=== PATIENT | female | born 1980 | race Caucasian/White ===

== ENCOUNTER 2023-03-24 02:00 | Day surgery (SDC) | payer OTHER, SELFPAY ==
[2023-03-23 21:47] VITALS: BP 206/139
[2023-03-23 22:09] LABS: % Basophils 0.7 % (0-2); % Eosinophils 1.4 % (0-6); % Immature Granulocytes 0.5 % (0-0.5); % Lymphocytes 24.1 % (20.5-51.1); % Monocytes 6.2 % (1.7-9.3); % Neutrophils 67.1 % (42.2-75.2); Absolute Basophils 0.1 10^3/uL (0-0.2); Absolute Eosinophils 0.2 10^3/uL (0-0.7); Absolute Immature Granulocytes 0.1 10^3/uL (0-0.05); Absolute Lymphocytes 3.1 10^3/uL (1.2-3.4); Absolute Monocytes 0.8 10^3/uL (0.1-0.6); Absolute Neutrophils 8.5 10^3/uL (1.4-6.5); Hematocrit 40.3 % (37.0-47.0); Hemoglobin 13.9 g/dL (12.0-16.0); Mean Corp Hgb Conc. 34.5 g/dL (33.0-37.0); Mean Corpuscular Hgb 27.1 pg (27.0-31.0); Mean Corpuscular Volume 78.7 fL (81.0-99.0); Mean Platelet Volume 8.5 fL (7.4-10.4); Nucleated Red Blood Cells % 0 %; Platelet Count 291 10^3/uL (130-400); Red Blood Cell Count 5.12 10^6/uL (4.20-5.40); Red Cell Dist. Width 13.6 % (11.5-14.5); White Blood Cell Count 12.7 10^3/uL (4.8-10.8)
[2023-03-23 22:22] LABS: Lactic Acid 2.1 mmol/L (0.7-2.0)
[2023-03-23 22:29] LABS: ALT (SGPT) 21 U/L (0-35); AST (SGOT) 26 U/L (14-36); Albumin 4.4 g/dl (3.5-5.0); Alkaline Phosphatase 123 U/L (38-126); Blood Urea Nitrogen 16 mg/dl (7-17); Calcium 9.8 mg/dl (8.4-10.2); Carbon Dioxide 28 mmol/L (22-30); Chloride 96 mmol/L (98-107); Glucose 104 mg/dl (70-99); Potassium 3.7 mmol/L (3.5-5.1); Sodium 136 mmol/L (135-145); Total Bilirubin 0.5 mg/dl (0.2-1.3); Total Protein 7.6 g/dl (6.3-8.2); eGFR > 60.00
[2023-03-23 22:30] LABS: Lipase 128 U/L (23-300)
[2023-03-23 22:40] VITALS: BP 120/72
[2023-03-23 22:44] VITALS: BMI 40.7
[2023-03-23 23:00] VITALS: BP 132/94
--- NOTE | 2023-03-23 23:04 | ED.GENMED ---
History of Present Illness
<Jennifer aKuffman, MEDICAL AIDE - Last Filed: 03/23/23 23:38>
General
Chief Complaint: Abdominal Pain
Source: patient
Exam Limitations: none
Time Seen by Provider: 03/23/23 22:50
Nursing documentation reviewed up to this point in time: agreed with
Travel History
Have you had any contact with someone who has COVID-19?: No
Do you have any symptoms of coronavirus? Fever > 100 degrees, chills, cough, shortness of breath, sore throat, loss of taste or smell, muscle aches, or headache?: No
History of Present Illness
History of Present Illness:
42-year-old female with history of C-sections states at 2 PM today she developed right lower quadrant pain that has become worse it is now 8/10. She is nauseous but has not vomited. She had 2 loose stools this morning. She denies chest pain or
trouble breathing.
Past History
<Jennifer Kauffman, MEDICAL AIDE - Last Filed: 03/23/23 23:38>
Past History
ED Past Medical History: None
ED Past Surgical History:
Social History
Tobacco: Non-smoker
Alcohol: None
Personal:
Living: with family
Employment: Employed ([employer])
Review of Systems
<Jennifer Kauffman, MEDICAL AIDE - Last Filed: 03/23/23 23:38>
Review of Systems
Allergies reviewed?: Yes
All Other Systems: ROS reviewed and negative except as documented in HPI and ROS
Respiratory: Denies trouble breathing
Cardiac: Denies chest pain
ABD/GI: Reports abdominal pain and nausea; Denies vomiting, diarrhea (loose stools this a.m.), bloody stools or black stools
: Denies dysuria, difficulty voiding or urgency
Musculoskeletal: Reports no symptoms
Skin: Reports no symptoms
Neurological: Reports no symptoms
Phy Exam
<Jennifer Kauffman, MEDICAL AIDE - Last Filed: 03/23/23 23:38>
Physical Exam
Physical Exam:
GENERAL: Mild distress with RLQ pain. A&Ox3.
CONSTITUTIONAL: Afebrile.
EYES: clear, conjunctivae normal
ENMT: moist mucus membranes, Pharynx nl
RESPIRATORY: Regular respirations, nonlabored, lungs clear.
CARDIOVASCULAR: Regular rate and rhythm, no murmurs, no rubs.
GI: Morbidly obese, Soft, tender RLQ, normal BS
MUSCULOSKELETAL: Moves with ease. Well perfused.
SKIN: Warm, dry, pink
PSYCH: Normal mood and affect. Well kept, interactive and appropriate
NEUROLOGIC: Awake, alert and oriented. No focal neurological deficits
Course
<Jennifer Kauffman, MEDICAL AIDE - Last Filed: 03/23/23 23:38>
Orders/Labs/Results
Orders:
Orders
03/23/23 22:01
Beta HCG Quantitative Urgent
Comment: ADD ON
Complete Blood Count/With Diff Urgent
Comprehensive Metabolic Panel Urgent
Lactic Acid Urgent
Lipase Urgent
Blood Culture Urgent
ROXANA Source: Blood/Venous
Specimen Description:
03/23/23 23:07
0.9% Sodium Chloride 1000 ml [Nss] 1,000 ml IV BOLUS
HYDROmorphone [Dilaudid] 1 mg IV NOW STA
03/23/23 23:08
Ondansetron Injectable [Zofran] 4 mg IV NOW STA
03/23/23 23:18
Add On- LAB Urgent
Tests Added?: serum beta HCG
03/24/23 00:30
CT Abd/Pel (IV only)-DH only Urgent
Reason For Exam: RLQ pain
03/24/23 01:21
HYDROmorphone [Dilaudid] 1 mg IV NOW STA
Piperacillin/Tazo 3.375 Gram [Zosyn] 3.375 gram in 50 ml IV NOW
Abnormal Lab Results
03/23/23
22:01
WBC 12.7 H 10^3/uL
(4.8-10.8)
MCV 78.7 L fL
(81.0-99.0)
Abs Immat Gran (auto) 0.1 H 10^3/uL
(0-0.05)
Absolute Neuts (auto) 8.5 H 10^3/uL
(1.4-6.5)
Absolute Monos (auto) 0.8 H 10^3/uL
(0.1-0.6)
Chloride 96 L mmol/L
(98-107)
Glucose 104 H mg/dl
(70-99)
Lactic Acid 2.1 H mmol/L
(0.7-2.0)
03/23/23 22:01
03/23/23 22:01
Vital Signs
Initial and Last Documented VS:
Initial Vital Signs
Temp Pulse Resp BP Pulse Ox
36.9 C 98 20 206/139 98
03/23/23 21:47 03/23/23 21:47 03/23/23 21:47 03/23/23 21:47 03/23/23 21:47
Last Documented Vital Signs
Temp Pulse Resp BP Pulse Ox
36.9 C 83 14 142/86 96
03/23/23 21:47 03/24/23 01:15 03/23/23 22:45 03/24/23 00:00 03/24/23 01:15
<Dash Hanson MD - Last Filed: 03/24/23 01:32>
Orders/Labs/Results
Orders:
Orders
03/23/23 22:01
Beta HCG Quantitative Urgent
Comment: ADD ON
Complete Blood Count/With Diff Urgent
Comprehensive Metabolic Panel Urgent
Lactic Acid Urgent
Lipase Urgent
Blood Culture Urgent
ROXANA Source: Blood/Venous
Specimen Description:
03/23/23 23:07
0.9% Sodium Chloride 1000 ml [Nss] 1,000 ml IV BOLUS
HYDROmorphone [Dilaudid] 1 mg IV NOW STA
03/23/23 23:08
Ondansetron Injectable [Zofran] 4 mg IV NOW STA
03/23/23 23:18
Add On- LAB Urgent
Tests Added?: serum beta HCG
03/24/23 00:30
CT Abd/Pel (IV only)-DH only Urgent
Reason For Exam: RLQ pain
03/24/23 01:21
HYDROmorphone [Dilaudid] 1 mg IV NOW STA
Piperacillin/Tazo 3.375 Gram [Zosyn] 3.375 gram in 50 ml IV NOW
Abnormal Lab Results
03/23/23
22:01
WBC 12.7 H 10^3/uL
(4.8-10.8)
MCV 78.7 L fL
(81.0-99.0)
Abs Immat Gran (auto) 0.1 H 10^3/uL
(0-0.05)
Absolute Neuts (auto) 8.5 H 10^3/uL
(1.4-6.5)
Absolute Monos (auto) 0.8 H 10^3/uL
(0.1-0.6)
Chloride 96 L mmol/L
(98-107)
Glucose 104 H mg/dl
(70-99)
Lactic Acid 2.1 H mmol/L
(0.7-2.0)
03/23/23 22:01
03/23/23 22:01
Vital Signs
Initial and Last Documented VS:
Initial Vital Signs
Temp Pulse Resp BP Pulse Ox
36.9 C 98 20 206/139 98
03/23/23 21:47 03/23/23 21:47 03/23/23 21:47 03/23/23 21:47 03/23/23 21:47
Last Documented Vital Signs
Temp Pulse Resp BP Pulse Ox
36.9 C 83 14 142/86 96
03/23/23 21:47 03/24/23 01:15 03/23/23 22:45 03/24/23 00:00 03/24/23 01:15
<Jennifer Kauffman MEDICAL AIDE - Last Filed: 03/23/23 23:38>
MDM/Problems Addressed
Differential Diagnosis Includes:
Appendicitis, colitis, gastroenteritis
MDM/Problems Addressed:
42-year-old female with history of C-sections states at 2 PM today she developed right lower quadrant pain that has become worse it is now 8/10. She is nauseous but has not vomited. She had 2 loose stools this morning. She denies chest pain or
trouble breathing.
Afebrile
Appears moderately uncomfortable
03/23/2023 2307 PM
BP rechecked 132/94
CBC: WBC 12.7
CMP: Normal
Lactic: 2.1
Lipase normal
HCG:
ED Attending Note
<Jennifer Kauffman MEDICAL AIDE - Last Filed: 03/23/23 23:38>
-
Portions of this chart may have been created with voice recognition software.� Occasional wrong word or��sound alike� substitutions may have occurred due to the inherent limitations of voice recognition software.
<Dash Hanson MD - Last Filed: 03/24/23 01:32>
ED Attending Note
Patient seen and examined by attending physician: Yes
ED Attending Note:
I have seen and evaluated the patient with a [id number] encounter. I have spoken to the advance practicer provider and involved in the medical history, the physical exam, medical decision making.
Evaluation and management service: agree unless noted differently below.
Results interpretation: agree unless noted differently below.
Focused HPI: 42-year-old female with no chronic medical issues presents for evaluation of abdominal pain. Located right lower quadrant. She reports onset this afternoon and has been constant and worsening since that time. Associated with some
loose stools and nausea. No vomiting. No fevers. No urinary symptoms. No vaginal bleeding. No similar symptoms in the past.
Physical exam: Awake alert oriented x 3. Hypertensive in triage normalized by my assessment. Afebrile. Abdomen soft, nondistended, markedly tender right lower quadrant.
Medical Decision Making: Patient presents with worsening right lower quadrant abdominal pain. Labs sent off which shows WBC 12.7, CMP unremarkable, lactate slightly elevated 2.1. CT of the abdomen pelvis called back by [facility] positive
for acute uncomplicated appendicitis. Treated patient's pain, provided some fluids. Discussed with general surgery will admit to their service.
Discharge Plan
Departure
Patient Disposition: Admit
Date of Disposition: 03/24/23
Time of Disposition: :
Admit to doctor: Charlette
Presentation/result/management discussed w/ accepting MD/DO: General Surgery
Discharge Problem:
Acute appendicitis
Referrals:
Warren Dodd DO [Family Provider] -
Interventions
Interventions:
*Risk Screen - Suicide Last Done: 03/23/23 21:47
*General Assessment Last Done: 03/23/23 21:47
*Neglect/Abuse Screening Last Done: 03/23/23 21:47
ED- Fall Risk Assessment Last Done: 03/23/23 22:45
NB-Nmznzo-Pgqqibaghp Assessment Last Done: 03/23/23 22:45
[2023-03-23] MEDS: ZOFRAN 4 MG IV (23:13)
[2023-03-23] MEDS: NSS 1000 IV (23:13)
[2023-03-23] MEDS: DILAUDID 1 MG IV (23:13)
[2023-03-24] VITALS (19 sets, daily range): BP systolic 91–142; BP diastolic 47–86
[2023-03-24 00:16] LABS: Beta HCG Quantitative < 2.39 mIU/ml
[2023-03-24] MEDS: DILAUDID 1 MG IV ×5 (01:49→10:12)
[2023-03-24] MEDS: ZOSYN 50 IV ×4 (01:49→20:23)
--- NOTE | 2023-03-24 02:33 | HPS.HSE ---
Family Physician
-
Family Physician: Warren Dodd
Chief Complaint
-
RLQ abdominal pain and nausea
History of Present Illness
This is a pleasant 42 year old female who came to the ED with her after a rather sudden onset of unprovoked RLQ abdominal pain with nausea earlier in the afternoon. PMH includes C sections. No aggravating or relieving factors. She takes no
medications on a regular basis. No YAN, CP, SOB, AMARO, diarrhea or dysuria.
Medical History
Past Medical History
Past Medical History: Reports Other
Past Surgical History: Reports Gynocological
Additional Past Surgical History:
C section
Social History
Tobacco: Non-smoker
Alcohol: Occasional
Drug: None
Personal:
Living: With Family
Employment: Employed
Family History
Family History: Not pertinent
Allergies / Home Medications
Allergies reflects when Allergies were last updated in [facility].
Home Medications with original date entered in [facility]
Allergy/Medication List:
Allergies
Allergy/AdvReac Type Severity Reaction Status Date / Time
No Known Allergies Allergy Unverified 03/23/23 21:47
If medication reconciliation has not been performed, why?: Medication List N/A
Review of Systems
-
History Source: Patient, Family and Other (previously obtained medical records)
A 12 point ROS was completed and negative except as noted: Yes
Constitutional: Reports Fatigue
EENT: Reports No Symptoms
Respiratory: Reports No Symptoms
Cardiac: Reports No Symptoms
Abdomen/GI: Reports Abdominal Pain (RLQ)
: Reports No Symptoms
Musculoskeletal: Reports No Symptoms
Skin: Reports No Symptoms
Neurological: Reports No Symptoms
Endocrine: Reports No Symptoms
Hematologic/Lymphatic: Reports No Symptoms
Psych: Reports No Symptoms
Physical Exam
Vital Signs
Vital Signs
Temp Pulse Resp BP Pulse Ox
98.4 F 83 14 142/86 96
03/23/23 21:47 03/24/23 01:15 03/23/23 22:45 03/24/23 00:00 03/24/23 01:15
Physical Exam
General: Well Developed, Well Nourished and Pain
HEENT: NormoCephalic, Moist mucous membranes, Atraumatic and PERRLA
Respiratory: Clear and Non Labored Respirations
Cardiac: S1/S2 and Regular Rhythm
Breast: Deferred by me
GI: Soft and Tender (RLQ)
Rectal: Deferred by Provider
Genito-urinary: Clear Urine
Musculoskeletal: No Clubbing, No Cyanosis and No Edema
Skin: Warm and Dry
Neuro: Awake, Alert, AO x 3, No Motor Deficits and Nonfocal/grossly intact
Hematologic/Lymphatic: No Lymphadenopathy
Psych: Calm
Laboratory Results
-
03/23/23 22:01
03/23/23 22:01
Laboratory Results
Lactic Acid 2.1 mmol/L (0.7-2.0) H 03/23/23 22:01
Total Bilirubin 0.5 mg/dl (0.2-1.3) 03/23/23 22:01
AST 26 U/L (14-36) 03/23/23 22:01
ALT 21 U/L (0-35) 03/23/23 22:01
Alkaline Phosphatase 123 U/L (38-126) 03/23/23 22:01
Lipase 128 U/L (23-300) 03/23/23 22:01
Data Reviewed
-
CT Scan: Report Reviewed by me
Lab Data: Labs Reviewed by me
Old Records: Reviewed
Impression/Plan
-
IMPRESSION: Acute appendicitis
PLAN: This is a pleasant 42 year old female who came to the ED with her after a rather sudden onset of unprovoked RLQ abdominal pain with nausea earlier in the afternoon. PMH includes C sections. No aggravating or relieving factors. She
takes no medications on a regular basis. No YAN, CP, SOB, AMARO, diarrhea or dysuria.
*Acute appendicitis: NPO, NS IVF, Zosyn IV, Dilaudid IV, Zofran IV. Trend lactic acid
*DVT prophylaxis: SCDs. oob, ambulate.
*Disposition: FC. General surgery service.
[2023-03-24 02:46] LABS: Lactic Acid 0.8 mmol/L (0.7-2.0)
[2023-03-24] MEDS: NSS 1000 IV ×2 (03:47→14:15)
--- NOTE | 2023-03-24 07:44 | HPS.HSE ---
Family Physician
-
Family Physician: Warren Dodd
Chief Complaint
-
Abdominal pain
History of Present Illness
Patient is a 42 yo F with a PMH of morbid obesity (BMI of 41), depression/anxiety, and s/p who presents to the hospital with 12 to 24 hours of RLQ abdominal pain. Ms. Eason states that her symptoms began acutely on Thursday. Pain
persisted prompting presentation to the ED. Associated mild nausea, but no vomiting. No fevers or chills. She does report looser, nonbloody stools yesterday. No personal or family history of chronic GI illnesses such as IBD or colon cancers. No
prior colonoscopy.
Medical History
Past Medical History
Past Medical History: Reports Psychiatric (Depression/anxiety) and Other (Morbid obesity)
Past Surgical History: Reports
Social History
Tobacco: Non-smoker
Alcohol: Daily
Drug: None
Personal:
Living: With Family
Employment: Employed
Family History
Family History: Not pertinent
Allergies / Home Medications
Allergies reflects when Allergies were last updated in [facility].
Home Medications with original date entered in [facility]
Allergy/Medication List:
NKDA
Review of Systems
-
A 12 point ROS was completed and negative except as noted: Yes
Physical Exam
Vital Signs
Vital Signs
Temp Pulse Resp BP Pulse Ox
98.4 F 68 11 118/75 95
03/23/23 21:47 03/24/23 06:30 03/24/23 06:30 03/24/23 06:25 03/24/23 04:05
Physical Exam
General: Well Developed, Well Nourished and No Apparent Distress
Respiratory: Non Labored Respirations
Cardiac: Regular Rhythm
GI: Soft, Tender (RLQ) and Other (Nonperitoneal, exam limited by morbid obesity)
Skin: Warm and Dry
Neuro: Nonfocal/grossly intact
Laboratory Results
-
03/23/23 22:
03/23/23 22:
Laboratory Results
Lactic Acid 0.8 mmol/L (0.7-2.0) 03/24/23 02:23
Total Bilirubin 0.5 mg/dl (0.2-1.3) 03/23/23 22:
AST 26 U/L (14-36) 03/23/23 22:
ALT 21 U/L (0-35) 03/23/23 22:
Alkaline Phosphatase 123 U/L (38-126) 03/23/23 22:
Lipase 128 U/L (23-300) 03/23/23 22:
Data Reviewed
-
CT Scan: Image Personally Visualized and interpreted and Report Reviewed by me
Lab Data: Labs Reviewed by me
Impression/Plan
-
IMPRESSION:
Patient is a 42 yo F p/w acute appendicitis
The natural history and pathophysiology of appendicitis was discussed. Anatomy was reviewed. CT scan imaging as a relates to her appendix was reviewed. Options for management including medical management with antibiotics versus surgical
management with appendectomy were considered and discussed. The pros and cons of both approaches was discussed. Specifically, we discussed failure of medical management and future episodes of appendicitis versus surgical risks. Patient would like
to proceed with appendectomy.
Plan for a laparoscopic appendectomy. The procedure itself, as well as the risks, benefits, and alternatives was discussed. Specifically, we discussed the risks of bleeding, infection, injury to surrounding structures (bowel, bladder), staple line
leak, and need for open procedure. Typical postprocedural recovery including pain management and time off from work was discussed. All questions answered. Consent signed.
PLAN:
-- Laparoscopic appendectomy
-- Pain control: Tylenol and IV Dilaudid as needed
-- Antibiotics: Zosyn
-- NPO, IVF
--- NOTE | 2023-03-24 07:49 | W.SUR.PREOP ---
Pre-Operative Surgical Note
-
I have examined this patient prior to the performance of the scheduled procedure.
The patient's condition is unchanged from the time of the current History and
Physical and the patient is able to undergo the scheduled procedure.
--- NOTE | 2023-03-24 09:16 | PTCARENOTE ---
pt aaox3. states 10/10 pain in right upper abd. pain med given. room air nsr seen on monitor.
--- NOTE | 2023-03-24 11:54 | PTCARENOTE ---
pt sent to or. all clothes removed. all jewelry removed. all belongings sent with pt. nss running.
--- NOTE | 2023-03-24 13:13 | W.IMMPOSTOP ---
Addendum entered and electronically signed by Rory Ovalles MD 03/24/23 13:27:
[facility]#[id number]
Original Note:
Surgical Immed Post Op Note
-
Primary Surgeon: Charlette
Assisting Surgeon: None
Pre-op Diagnosis: Acute appendicitis
Post-op Diagnosis: Acute appendicitis
Procedure Performed: Laparoscopic appendectomy
Anesthesia Type: General
Specimen / Cultures:
1. Appendix
Estimated Blood Loss: 3 cc
Complications: None
Operative Findings:
1. Gangrenous appendix, lo volume turbid fluid and purulence, no ree perforation, retrocecal
2. Mesentery taken with Ligasure, base with huddleston load stapler
Plan:
-- Normal postoperative course
-- Plan for 7 days abx (Zosyn, Augmentin on DC)
[2023-03-24] MEDS: DILAUDID 0.5 MG IV (13:43)
[2023-03-24] MEDS: DILAUDID 0.25 MG IV (13:57)
--- NOTE | 2023-03-24 14:36 | PTCARENOTE ---
Received patient from PACU in bed; IVF infusing; Surgical site assessed; Patient oriented to room and call alexis use; Bed in lowest position, wheels locked, call alexis within reach; Safety maintained
[2023-03-24] MEDS: TYLENOL 650 MG PO ×2 (16:14→22:07)
[2023-03-24] MEDS: ROXICODONE 5 MG PO ×2 (18:34→22:56)
[2023-03-24] MEDS: TYLENOL PO (21:35)
[2023-03-24] MEDS: PROZAC 60 MG PO (22:06)
[2023-03-25] MEDS: ZOSYN 50 IV ×2 (01:59→08:11)
[2023-03-25 03:00] VITALS: BP 126/76
[2023-03-25] MEDS: TYLENOL PO ×2 (06:27→12:02)
[2023-03-25 07:11] VITALS: BP 125/85
[2023-03-25] MEDS: NSS 1000 IV (08:11)
[2023-03-25] MEDS: TYLENOL 650 MG PO (08:11)
--- NOTE | 2023-03-25 11:41 | W.PN.GS2 ---
Today's Communication / Plan
-
DC
Assessment / Plan
-
42F POD1 s/p lap appy for acute appendicitis with gangrenous changes
Meets criteria for DC home with 7 days augmentin
D/w pt and daughter, jamie ?s answered
DC home
Subjective Data
-
Date of Service: March 25, 2023
Doing well POD1, no complaints, best PO
Objective Data
-
Intake and Output
03/24/23 03/25/23 03/26/23
06:59 06:59 06:59
Intake Total 2059
Balance 2059
Intake:
Oral fluids 960 / 960
IV fluids (Total) 1000 / 1000
Normosol 100 / 100
IV piggybacks 100 / 100
Other:
Number of approximated MODERATE 2
amounts of urine
Vital Signs
Temp Pulse Resp BP Pulse Ox
98.3 F 70 16 125/85 96
03/25/23 07:11 03/25/23 07:11 03/25/23 07:11 03/25/23 07:11 03/25/23 07:11
Lab Results
03/23/23 22:01
03/23/23 22:01
Calcium 9.8 mg/dl (8.4-10.2) 03/23/23 22:01
Total Bilirubin 0.5 mg/dl (0.2-1.3) 03/23/23 22:01
AST 26 U/L (14-36) 03/23/23 22:01
ALT 21 U/L (0-35) 03/23/23 22:01
Alkaline Phosphatase 123 U/L (38-126) 03/23/23 22:01
Total Protein 7.6 g/dl (6.3-8.2) 03/23/23 22:01
Albumin 4.4 g/dl (3.5-5.0) 03/23/23 22:01
Physical Exam
-
Gen: NAD
Abd: soft, approp ttp, incisions cdi
[2023-03-25 11:46] VITALS: BP 135/87
--- NOTE | 2023-03-25 12:29 | CM ---
Met with patient at bedside; initial assessment completed
Lives in a split level home with spouse; 3 steps to enter; 4 steps between floors; powder room on the main floor; bedroom and bath on upper level; bath has tub with shower
PLOF: independent with stairs, ambulation and ADLs
Transport: Daughter will provide ride home
SNF/Rehab/Home Care utilization history: none
DME: None
Plan: discharge to home without services
--- NOTE | 2023-03-27 19:20 | ED.GENMED ---
History of Present Illness
General
Chief Complaint: Abdominal Pain
Source: patient
Exam Limitations: none
Time Seen by Provider: 03/23/23 22:50
Nursing documentation reviewed up to this point in time: agreed with
Travel History
Have you had any contact with someone who has COVID-19?: No
Do you have any symptoms of coronavirus? Fever > 100 degrees, chills, cough, shortness of breath, sore throat, loss of taste or smell, muscle aches, or headache?: No
History of Present Illness
History of Present Illness:
42-year-old female presents with right lower quadrant pain getting worse over the past 24 hours. Some diarrhea but denies nausea or vomiting. Denies fever or chills. Is on Augmentin for a recently diagnosed ear infection
Past History
Past History
ED Past Medical History: Asthma and Psychiatric (Anxiety/depression)
ED Past Surgical History:
Social History
Tobacco: Non-smoker
Alcohol: Occasional
Personal:
Living: with family
Employment: Employed
Review of Systems
Review of Systems
Allergies reviewed?: Yes
All Other Systems: ROS reviewed and negative except as documented in HPI and ROS
Constitutional: Denies fever
Respiratory: Denies trouble breathing
Cardiac: Denies chest pain
ABD/GI: Reports abdominal pain; Denies nausea, vomiting or diarrhea
: Reports no symptoms
Musculoskeletal: Reports no symptoms
Skin: Reports no symptoms
Neurological: Reports no symptoms
Phy Exam
Physical Exam
Physical Exam:
GENERAL: No acute distress. A&Ox3.
CONSTITUTIONAL: Afebrile.
EYES: conjunctivae normal
ENMT: moist mucus membranes, Pharynx nl
RESPIRATORY: Regular respirations, nonlabored, lungs clear.
CARDIOVASCULAR: Regular rate and rhythm, no murmurs, no rubs.
GI: Soft, tender right lower quadrant, no guarding, normal BS
MUSCULOSKELETAL: Moves with ease. Well perfused.
SKIN: Warm, dry, pink
PSYCH: Normal mood and affect. Well kept, interactive and appropriate
NEUROLOGIC: Awake, alert and oriented. No focal neurological deficits
Course
Orders/Labs/Results
Orders:
Orders
03/23/23 22:01
Beta HCG Quantitative Urgent
Comment: ADD ON
Complete Blood Count/With Diff Urgent
Comprehensive Metabolic Panel Urgent
Lactic Acid Urgent
Lipase Urgent
Blood Culture Urgent
ROXANA Source: Blood/Venous
Specimen Description:
03/23/23 23:07
0.9% Sodium Chloride 1000 ml [Nss] 1,000 ml IV BOLUS
HYDROmorphone [Dilaudid] 1 mg IV NOW STA
03/23/23 23:08
Ondansetron Injectable [Zofran] 4 mg IV NOW STA
03/24/23 00:30
CT Abd/Pel (IV only)-DH only Urgent
Reason For Exam: RLQ pain
03/24/23 01:21
HYDROmorphone [Dilaudid] 1 mg IV NOW STA
Piperacillin/Tazo 3.375 Gram [Zosyn] 3.375 gram in 50 ml IV NOW
03/24/23 01:36
Admit/Transfer Patient As Directed
Co-Sign Provider:
Level of Care: Observation services
Assign to:: Medical/Surgical
Physician / Group: [facility]/general surgery service
Diagnosis: appendicitis
03/24/23 01:37
Code Status As Directed
Resuscitation Status: Full Code
03/24/23 01:48
HYDROmorphone [Dilaudid] 1 mg IV NOW STA
03/24/23 02:00
Flush (0.9% Sodium Chloride) [Flush (Nss)] See Dose Instructions IV PER PROTOCOL
03/24/23 02:23
Lactic Acid Routine
03/24/23 03:12
0.9% Sodium Chloride 1000 ml [Nss] 1,000 ml IV 60 mls/hr
HYDROmorphone [Dilaudid] 0.5 mg IV Q2HPRN PRN
HYDROmorphone [Dilaudid] 1 mg IV Q2HPRN PRN
Ondansetron Injectable [Zofran] 4 mg IV Q6HPRN PRN
03/24/23 03:12
Activity As Directed
Activity Level: Out of Bed-Early Mobility
Anti-embolism (RHETT) Hose As Directed
Type: Thigh high
Intake/ Output As Directed
Frequency: Per unit guidelines
Pneumatic Compression Sleeves As Directed
Type: Thigh high
Vital Signs As Directed
Frequency: Per unit guidelines
DX Deep Vein Thrombosis Video Routine
03/24/23 Breakfast
NPO
Allow oral meds: No
Allow clear liquids: No
NPO with Ice Chips: No
03/24/23 08:00
Piperacillin/Tazo 3.375 Gram [Zosyn] 3.375 gram in 50 ml IV Q6H
03/24/23 11:39
Bupivacaine Mpf 0.25% [Sensorcaine-Mpf 0.25% Vial] 30 ml .ROUTE .STK-MED ONE
03/24/23 11:51
Dexamethasone Sod Phosphate [Decadron] 20 mg .ROUTE .STK-MED ONE
Fentanyl Citrate/Pf [Sublimaze] 100 mcg .ROUTE .STK-MED ONE
Lidocaine 2% Mpf [Xylocaine Mpf 2%] 100 mg .ROUTE .STK-MED ONE
Midazolam HCl [Versed] 2 mg .ROUTE .STK-MED ONE
Ondansetron Injectable [Zofran] 4 mg .ROUTE .STK-MED ONE
Propofol [Diprivan] 20 ml .ROUTE .STK-MED
Rocuronium [place] [Rocuronium] 50 mg .ROUTE .STK-MED ONE
03/24/23 12:10
HYDROmorphone [Dilaudid] 0.25 mg IV PACU-Q5MPRN PRN
HYDROmorphone [Dilaudid] 0.5 mg IV PACU-Q5MPRN PRN
Meperidine [Demerol] 12.5 mg IV PACU-Q5MPRN PRN
Ondansetron Injectable [Zofran] 4 mg IV PACU-ONCEPRN PRN
Prochlorperazine [Compazine] 5 mg IV PACU-ONCEPRN PRN
Notify MD As Directed
Notify physician if: for SDS patients with known or suspected sleep obstructive sleep apnea, monitor in the
PACU.
Notify MD for any apneic/desaturation episodes
O2 Therapy [RESP] Urgent
Titrate/Wean O2 to maintain O2 sat greater than (%): 92
Special Instructions: -Provide supplemental oxygen to achieve O2 sat of 92% or greater.
-After 15 min, may wean O2 and discontinue if patient is able to maintain O2 sat of 92%
or greater during recovery period.
If patient is a discharge home, without oxygen therapy, notify anestheiologist if
unable to maintain O2 SAT of 92% or greater on room air for MD clearance.
03/24/23 12:15
Normosol (Mult Electrolytes) [Normosol-R] 1,000 ml IV PER PROTOCOL
03/24/23 12:34
Piperacillin/Tazo 3.375 Gram [Zosyn] 3.375 gram in 50 ml .ROUTE .STK-MED
03/24/23 12:40
Phenylephrine HCl/0.9% NaCl [Cordell-Synephrine] 1,000 mcg .ROUTE .STK-MED ONE
03/24/23 12:48
Rocuronium [place] [Rocuronium] 50 mg .ROUTE .STK-MED ONE
03/24/23 12:49
OR Pathology Routine
Pre-Operative Diagnosis: Appendicitis
Operative Procedure: Laparoscopic Appendectomy
Surgeon: Charlette
Specimen Type: Appendix
03/24/23 13:12
Glycopyrrolate [Robinul] 0.2 mg .ROUTE .STK-MED ONE
Neostigmine [Prostigmin] 6 mg .ROUTE .STK-MED ONE
03/24/23 13:16
Admit Patient As Directed
Co-Sign Provider:
Level of Care: Post Proc/Surg Recovery
Assign to:: Medical/Surgical
Physician / Group: Charlette / [facility]
Diagnosis: Acuet appendicitis
Reason for Overnight Stay: Standard of Care
Ketorolac [Toradol] 10 mg IV Q6HPRN PRN
Oxycodone [Roxicodone] 5 mg PO Q4HPRN PRN
Vital Signs As Directed
Frequency: Per unit guidelines
DX Deep Vein Thrombosis Video Routine
03/24/23 13:17
Albuterol [ProAIR HFA INHALER] 2 puff INH R Q4HPRN PRN
Rx Incentive Spirometry [RESP] Routine
Frequency: q1h while awake
# of times per hour: 10
03/24/23 13:43
HYDROmorphone [Dilaudid] 0.5 mg .ROUTE .STK-MED ONE
03/24/23 13:56
HYDROmorphone [Dilaudid] 0.5 mg .ROUTE .STK-MED ONE
03/24/23 Dinner
Regular
At Your Request: Limited Participation
Does patient need a safe tray?: No
03/24/23 16:00
Acetaminophen [Tylenol] 650 mg PO Q4HWA
03/24/23 22:00
Fluoxetine HCl [Prozac] 60 mg PO HS
03/25/23 11:44
Discharge Patient As Directed
Is patient a candidate for the influenza vaccine?: No
Do you have a designated caregiver: Yes-same as spokesperson
03/25/23 18:00
Enoxaparin Sodium [Lovenox] 40 mg SC QPM
Abnormal Lab Results
03/23/23
22:01
WBC 12.7 H 10^3/uL
(4.8-10.8)
MCV 78.7 L fL
(81.0-99.0)
Abs Immat Gran (auto) 0.1 H 10^3/uL
(0-0.05)
Absolute Neuts (auto) 8.5 H 10^3/uL
(1.4-6.5)
Absolute Monos (auto) 0.8 H 10^3/uL
(0.1-0.6)
Chloride 96 L mmol/L
(98-107)
Glucose 104 H mg/dl
(70-99)
Lactic Acid 2.1 H mmol/L
(0.7-2.0)
03/23/23 22:01
03/23/23 22:01
Vital Signs
Initial and Last Documented VS:
Initial Vital Signs
Temp Pulse Resp BP Pulse Ox
98.4 F 98 20 206/139 98
03/23/23 21:47 03/23/23 21:47 03/23/23 21:47 03/23/23 21:47 03/23/23 21:47
Last Documented Vital Signs
Temp Pulse Resp BP Pulse Ox
98.7 F 72 16 135/87 98
03/25/23 11:46 03/25/23 11:46 03/25/23 11:46 03/25/23 11:46 03/25/23 11:46
MDM/Problems Addressed
Differential Diagnosis Includes:
appendicitis, uti, colitis
MDM/Problems Addressed:
42-year-old female presents with right lower quadrant pain getting worse over the past 24 hours. Some diarrhea but denies nausea or vomiting. Denies fever or chills. Is on Augmentin for a recently diagnosed ear infection
Afebrile
03/23/2023 2300 PM
CBC: WBC 12.7
CMP: Normal
03/23/2023
CT scan abdomen pelvis with IV only contrast radiology report read:
IMPRESSION:
1. Findings consistent with acute tip appendicitis. No evidence of perforated appendicitis or abscess formation.
2. No evidence of significant colitis.
Dr. Lorenz, general surgery consulted and will take pt to surgery.
Pt remains stable, comfortable
Will admit to Surgery service
House provider Tali Reddy [employer] notified
*Critical Care Note
Total Time (30-74mins, 75-104mins- exclusive of procedures): Not Applicable
ED Attending Note
-
Portions of this chart may have been created with voice recognition software.� Occasional wrong word or��sound alike� substitutions may have occurred due to the inherent limitations of voice recognition software.
Discharge Plan
Departure
Patient Disposition: Admit
Date of Disposition: 03/24/23
Time of Disposition: :
Admit to doctor: [facility]
Presentation/result/management discussed w/ accepting MD/DO: General Surgery
Discharge Problem:
Acute appendicitis
Interventions
Interventions:
*Risk Screen - Suicide Last Done: 03/23/23 21:47
*General Assessment Last Done: 03/23/23 21:47
*Neglect/Abuse Screening Last Done: 03/23/23 21:47
ED- Fall Risk Assessment Last Done: 03/23/23 22:45
*ED COVID-19 Vaccine History Last Done: 03/24/23 03:04
*Nursing Disposition Last Done: 03/24/23 03:59
XJ-Vdbiqj-Tyasyscaik Assessment Last Done: 03/23/23 22:45
== END 2023-03-25 13:01 | disposition home or self-care (01) ==
LOC: SDS 02:00
PROVIDERS: Registered Nurse; ATTENDING PHYSICIAN Surgery; EMERGENCY PHYSICIAN Emergency Medicine; FAMILY PHYSICIAN Family Medicine
DX: K35.891 Other acute appendicitis without perforation, with gangrene (principal)
CPT/HCPCS: 44970; 88304; 74177; 80053; 83605; 83690; 84702; 85025; 87040; 99285; G0378; Q9967